=== PATIENT | female | born 1985 | race African-American/Black ===

== ENCOUNTER 2017-08-16 11:57 | Emergency (ER) | payer MEDICAID ==
[~2017-08-16] VITALS: Ht 167.6 cm; Wt 96.2 kg
[2017-08-16] MEDS ORDERED: PRILOSEC OTC20 MG ORAL (14:14)
[2017-08-16] MEDS ORDERED: ZITHROMAX250 MG ORAL (14:14)
[2017-08-16] MEDS ORDERED: PREDNISONE50 MG ORAL (14:14)
[2017-08-16] MEDS ORDERED: QVAR7.3 GM INH (14:14)
--- NOTE | 2017-08-16 14:15 | Emergency Room Report ---
History of Present Illness General Chief Complaint: Flu Like Symptoms Source: Patient Present Illness HPI 32 y/o female c/o cough x 3 months. Assoc sxs include chest congestion, wheezing , and productive cough. States she is using home HHN albuterol w/ mild relief. Was at [facility] last month and CXR showed bronchitis. Patient is requesting reeval of sxs as sxs have continued to persist. Denies any current n/ v/f/c/d, abd pain, back pain, neck pain, photophobia, phonophobia, CP, SOB or headache. Allergies: Coded Allergies: No Known Allergies (Unverified , 08/16/17) Patient History Past Medical History: see triage record Past Surgical History: none Pertinent Family History: none Now: No Immunizations: UTD Reviewed Nursing Documentation: PMH: Agreed, PSxH: Agreed Nursing Documentation-PMH Past Medical History: No History, Except For Hx Cardiac Problems: No - GRAVES DISEASE Hx Hypertension: No - ANEMIA Hx Diabetes: Yes Review of Systems All Other Systems: negative except mentioned in HPI Physical Exam Vital Signs Date Time Temp Pulse Resp B/P (MAP) Pulse Ox O2 Delivery O2 Flow Rate FiO2 08/16/17 12:08 98.1 89 20 108/64 97 Room Air Sp02 EP Interpretation: reviewed, normal General Appearance: no apparent distress, alert, GCS 15, non-toxic Head: normocephalic, atraumatic Eyes: bilateral eye normal inspection, bilateral eye PERRL ENT: hearing grossly normal, normal pharynx, no angioedema, normal voice Neck: full range of motion, supple/symm/no masses Respiratory: chest non-tender, normal breath sounds, speaking full sentences, wheezing, other - left rales w/ egophone Cardiovascular #1: regular rate, rhythm, no edema Musculoskeletal: digits/nails normal, gait/station normal Neurologic: alert, oriented x3, responsive, motor strength/tone normal, sensory intact, speech normal Psychiatric: judgement/insight normal, memory normal, mood/affect normal, no suicidal/homicidal ideation Skin: normal color, no rash, warm/dry, well hydrated Medical Decision Making PA Attestation Dr. Hancock my supervising physician with whom patient management has been discussed with. Diagnostic Impression: Primary Impression: Atypical pneumonia Additional Impression: Chronic cough ER Course Pt. presents to the ED c/o of cough Ddx considered but are not limited to bronchitis, pneumonia, viral upper respiratory tract infection Vital signs: are WNL, pt. is afebrile H&PE are most consistent with atypical pneumonia. although chest x-ray was negative, patient has cough has persisted for 3 months. Patient does have some left-sided rales with some egophony. ORDERS: chest x-ray was negative ED INTERVENTIONS: None required at this time. DISCHARGE: At this time pt. is stable for d/c to home. Will provide printed patient care instructions, and any necessary prescriptions. Care plan and follow up instructions have been discussed with the patient prior to discharge. Last Vital Signs Date Time Temp Pulse Resp B/P (MAP) Pulse Ox O2 Delivery O2 Flow Rate FiO2 08/16/17 12:08 98.1 89 20 108/64 97 Room Air Disposition: HOME, SELF-CARE Condition: Stable Scripts Omeprazole Magnesium (PRILOSEC OTC) 20 Mg Tablet.dr 20 MG ORAL DAILY for 14 Days, #14 TAB Prov: SABRY,TAMEEM P.A. 08/16/17 Beclomethasone Dipropionate 40MCG Oral Inh (QVAR 40*) 7.3 Gm Aer.w.adap 2 PUFFS INH TWICE A DAY for 30 Days, #1 GM 0 Refills Prov: SABRY,TAMEEM P.A. 08/16/17 Azithromycin* (ZITHROMAX*) 250 Mg Tablet 250 MG ORAL DAILY, #6 TAB 0 Refills Take two tables once daily for 1 day, then one tablet once daily for 4 days. Prov: SABRY,TAMEEM P.A. 08/16/17 Prednisone* (PREDNISONE*) 50 Mg Tablet 50 MG ORAL DAILY, #5 TAB 0 Refills Prov: SABRY,TAMEEM P.A. 08/16/17 Referrals: [facility],REFERR[facility] (PCP) Patient Instructions: Community-Acquired Pneumonia, Adult Additional Instructions: Take medication as directed. Drink plenty of fluids which include Gatorade and water. Get plenty of rest. Avoid taking medications on an empty stomach. If you have cough avoid dairy and cold beverages. If you have a fever, headache or body aches please take [id number] tylenol/motrin/advil unless a prescription for these symptoms have been given. If your symptoms are worsening or you have shortness or breath, severe headaches or chest pain, please call 911 or go to the ER. ANALI YOUNGER Aug 16, 2017 14:15
[2017-08-16 14:36] VITALS: BP 130/81
--- NOTE | 2017-08-16 15:26 | Diagnostic Imaging Report ---
. Indication: Reason For Exam: COUGH Technique: 2 views of the chest Comparison: none. Findings: Lungs and pleural spaces are clear. Heart size is normal. Bones are unremarkable. Slight wedge deformity of the T12 vertebral body is probably physiologic. Impression: No acute process
== END 2017-08-16 15:00 | disposition home or self-care (01) ==
LOC: EMR 13:00
DX: J18.9 Pneumonia, unspecified organism (principal); E11.9 Type 2 diabetes mellitus without complications; E05.00 Thyrotoxicosis with diffuse goiter without thyrotoxic crisis or storm
CPT/HCPCS: 71020; 99284